=== PATIENT | female | born 1960 | race Hispanic/Latino ===

== ENCOUNTER → 2019-01-04 | Outpatient (CLI) | payer MEDICARE, OTHER | END | disposition home or self-care (01) | LOC: OIH 13:46 | PROVIDERS: ATTEND Internal Medicine | DX: M77.31 Calcaneal spur, right foot (principal); M77.32 Calcaneal spur, left foot; M06.4 Inflammatory polyarthropathy | CPT/HCPCS: 73120; 73620 ==